=== PATIENT | female | born 1990 | race Caucasian/White ===

== ENCOUNTER → 2017-06-16 | Outpatient (CLI) | payer OTHER ==
[~2017-06-16] MED LIST: AMOX500C2 PO; CEPH500C PO; CODE-54 PO; DCS100C PO; FRS325T PO; IBP600T1 PO; NAPR-243 PO; NITR-65 PO; ONDAN4ODT PO; PENI500T PO; PREN1TAB19 PO; TRM50T PO
--- NOTE | 2017-06-16 09:32 | Diagnostic Imaging Report ---
PROCEDURE: CT head without contrast. TECHNIQUE: Multiple contiguous axial images were obtained through the brain without the use of intravenous contrast. INDICATION: Headache after injury. FINDINGS: There is no intracranial hemorrhage, edema or mass effect. The brain parenchyma and palomino-white matter differentiation is preserved. No hydrocephalus. No extra-axial fluid collection is seen. The calvarium, the paranasal sinuses, and orbits visualized portions appear unremarkable. IMPRESSION: Unremarkable exam. Dictated by: Dictated on workstation # [id number]
== END ==
LOC: RAD 08:35
PROVIDERS: ATTEND Nurse Practitioner
DX: R51 Headache (principal)
CPT/HCPCS: 70450

== ENCOUNTER 2021-05-25 03:54 | Emergency (ER) | payer BC ==
[~2021-05-25] VITALS: Ht 162.5 cm; Wt 55.0 kg
[2021-05-25 04:09] VITALS: BP 123/93
[2021-05-25] MEDS ORDERED: NAPR500T8 PO (04:14)
[2021-05-25] MEDS ORDERED: TRAM-42 PO (04:14)
[2021-05-25] MEDS ORDERED: AMOX-358 PO (04:14)
[2021-05-25] MEDS ORDERED: LIDO20SO23 MM (04:14)
[2021-05-25] MEDS ORDERED: RX-NAPROXEN (NAPROSYN) 250 MG TAB PPK#4 PO STA (04:15)
[2021-05-25] MEDS ORDERED: AUGMENTIN 875 MG TAB (AMOXICILLIN/CLAVULANATE) PO SCH (04:15)
[2021-05-25] MEDS ORDERED: LIDOCAINE 2% VISCOUS 15 ML UDC MM ONE (04:15)
--- NOTE | 2021-05-25 04:15 | ED EENT ---
History of Present Illness General Chief Complaint: Dental Problems/Pain Stated Complaint: DENTAL PAIN Source: patient History of Present Illness Date Seen by Provider: May 25, 2021 Time Seen by Provider: 04:05 Initial Comments PT ARRIVES VIA POV FROM HOME C/O DENTAL PAIN TO LEFT LOWER MOLAR AREA STATES SHE HAS HAD A FILLING IN THAT TOOTH FOR A LONG TIME STATES ON Thursday05/22/21, SHE WAS EATING AN APPLE AND THE TOOTH BROKE OFF, ALONG WITH THE FILLING. HAS HAD INCREASING PAIN SINCE THEN, AND TONIGHT, SHE BEGAN HAVING SWELLING TO HER LEFT JAW AREA NO FEVER AT ANY TIME NO HISTORY OF SIMILAR HAS TAKEN TYLENOL WITHOUT RELIEF HAS NOT ATTEMPTED TO FOLLOW UP WITH A DENTIST FOR THIS PROBLEM PCP: DR. MONTERO DENTIST: [facility] Allergies and Home Medications Allergies Coded Allergies: No Known Drug Allergies (Unverified , 03/20/13) Patient Home Medication List Home Medication List Reviewed: Yes Acetaminophen/Codeine (Tylenol W/Codeine #3 Tablet) 1 Tab Tablet, 1-2 TAB PO Q4H PRN for MODERATE TO SEVERE PAIN Prescribed by: JOSIE TAYLOR on 01/05/14718 Amoxicillin (Amoxicillin) 500 Mg Capsule, 1,000 MG PO BID Prescribed by: JONH NAYLOR on 02/17/16 2230 Amoxicillin/Potassium Clav (Augmentin 875-125 Tablet) 1 Each Tablet, 1 EACH PO BID Prescribed by: YINKA PACHECO on 05/25/21 0414 Cephalexin Monohydrate (Cephalexin) 500 Mg Capsule, 1 EACH PO TID Prescribed by: BOWEN CABA on 01/13/14 1515 Docusate Sodium (Colace) 100 Mg Cap, 100 MG PO BID Prescribed by: JOSIE TAYLOR on 01/05/14718 Ferrous Sulfate (Feosol Tab) 325 Mg Tab, 325 MG PO DAILY@0700 Prescribed by: JOSIE TAYLOR on 01/05/14718 Ibuprofen (Motrin Tablet) 600 Mg Tab, 600 MG PO Q6H Prescribed by: JOSIE TAYLOR on 01/05/14718 Lidocaine HCl (Lidocaine HCl Viscous) 15 Ml Solution, 1-2 ML MM [id number] Prescribed by: YINKA PACHECO on 05/25/21 041 Naproxen (Naproxen) 500 Mg Tablet.dr, 500 MG PO BID Prescribed by: YINKA PACHECO on 05/25/21 0414 Vit/Fe Fumarate/Fa ( Vitamins Tablet) 1 Each Tablet, 1 EACH PO DAILY, (Reported) Entered as Reported by: CARLIE WHITLEY on 11/26/13 0749 Tramadol HCl (Ultram) 50 Mg Tablet, 50 MG PO Q4H Prescribed by: YINKA PACHECO on 05/25/21 0415 Review of Systems Review of Systems Constitutional: no symptoms reported Mouth: see HPI Throat: no symptoms reported Respiratory: no symptoms reported Cardiovascular: no symptoms reported Musculoskeletal: no symptoms reported Skin: no symptoms reported Neurological: No Symptoms Reported Past Zmllhsw-Abuxhl-Eqshsc Hx Immunizations Up To Date Tetanus Booster (TDap): Unknown PED Vaccines UTD: Yes Seasonal Allergies Seasonal Allergies: No Past Medical History Surgeries: No Respiratory: No Cardiac: No Neurological: No Reproductive Disorders: No Female Reproductive Disorders: Denies HIV/AIDS: No Gastrointestinal: No Musculoskeletal: No Endocrine: No HEENT: No Cancer: No Psychosocial: No Integumentary: No Adverse Reaction/Blood Tranf: No Family Medical History Patient reports no known family medical history. No Pertinent Family Hx Physical Exam Vital Signs Vital Signs - First Documented 05/25/21 04:09 Temp 37.2 Pulse 68 Resp 16 B/P (MAP) 123/93 (103) Pulse Ox 100 O2 Delivery Room Air Height, Weight, BMI Height: 5'4.00" Weight: 124lbs. 0.0oz. 56.592631pb; 21.3 BMI Method:Stated General Appearance: WD/WN, no apparent distress, thin, other (PURPLE AND CARBAJAL HAIR) Mouth/Throat: dental tenderness; No excessive drooling; mandibular swelling; No maxillary swelling, No trismus; other (LEFT LOWER FIRST MOLAR BROKEN IN HALF, WITH MODERATE SURROUNDING ERYTHEMA AND SWELLING TO ADJACENT GUM TISSUE. NO FLUCUTANCE. NO DRAINAGE. MILD SWELLING AND MODERATE TENDERNESS TO LEFT MANDIBLE. 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, no motor/sensory deficits, alert, normal mood/affect, oriented x 3 Skin: normal color, warm/dry Progress/Results/Core Measures Results/Orders My Orders Orders - YINKA PACHECO DO Rx-Naproxen (Rx-Naprosyn) (05/25/21 04:15) Rx-Tramadol Hcl (Rx-Ultram) (05/25/21 04:15) Amoxicillin/Clavulanate Tablet (Augmenti (05/25/21 04:15) Lidocaine 2% Viscous 15 Ml (Xylocaine Vi (05/25/21 04:15) Vital Signs/I&O 05/25/21 04:09 Temp 37.2 Pulse 68 Resp 16 B/P (MAP) 123/93 (103) Pulse Ox 100 O2 Delivery Room Air Departure Impression Primary Impression: Dental infection Additional Impression: BROKEN TOOTH WITH INFECTION Disposition: HOME, SELF-CARE Condition: Stable Departure-Patient Inst. Decision time for Depature: 04:10 Referrals: CLARK MONTERO MD (PCP/Family) Primary Care Physician [facility] Patient Instructions: Fractured Tooth (DC), Tooth Abscess (DC) Add. Discharge Instructions: FREQUENT SALT WATER SWISHES SOFT FOODS AND AVOID CHEWING ON LEFT SIDE FOLLOW UP WITH DENTIST SOON POSSIBLE --CALL IN THE MORNING TO SCHEDULE APPOINTMENT All discharge instructions reviewed with patient and/or family. Voiced understanding. Scripts Tramadol HCl (Ultram) 50 Mg Tablet 50 MG PO Q4H for Pain, #10 TAB Prov: YINKA PACHECO DO 05/25/21 Naproxen (Naproxen) 500 Mg Tablet.dr 500 MG PO BID, #20 TAB Prov: SOHAIL PACHECOA K DO 05/25/21 Lidocaine HCl (Lidocaine HCl Viscous) 15 Ml Solution 1-2 ML MM [id number], #120 ML Prov: YINKA PACHECO DO 05/25/21 Amoxicillin/Potassium Clav (Augmentin 875-125 Tablet) 1 Each Tablet 1 EACH PO BID for 10 Days, #20 TAB Prov: YINKA PACHECO DO 05/25/21 YINKA PACHECO DO May 25, 2021 04:15
== END 2021-05-25 04:25 | disposition home or self-care (01) ==
LOC: EDUNIT# 03:54 → ER 04:02
DX: S02.5XXA Fracture of tooth (traumatic), initial encounter for closed fracture (principal); K04.7 Periapical abscess without sinus; X58.XXXA Exposure to other specified factors, initial encounter
CPT/HCPCS: 99283

== ENCOUNTER → 2021-07-10 | Outpatient (CLI) | payer BC ==
[~2021-07-10] MED LIST changes: +AMOX-358 PO; +LIDO20SO23 MM; +NAPR500T8 PO; +TRAM-42 PO
[2021-07-10 14:53] LABS: HEMATOCRIT 40 % (35-52); HEMOGLOBIN 13.3 g/dL (11.5-16.0); MEAN CORPUSCULAR HEMOGLOBIN 30 pg (25-34); MEAN CORPUSCULAR HGB CONC 34 g/dL (32-36); MEAN CORPUSCULAR VOLUME 89 fL (80-99); MEAN PLATELET VOLUME 10.7 fL (9.0-12.2); PLATELET COUNT 266 10^3/uL (130-400); WHITE BLOOD COUNT 5.7 10^3/uL (4.3-11.0)
[2021-07-10 15:33] LABS: ALANINE AMINOTRANSFERASE 16 U/L (0-55); ALBUMIN 4.6 GM/DL (3.2-4.5); ALKALINE PHOSPHATASE 41 U/L (40-136); BILIRUBIN,TOTAL 0.4 MG/DL (0.1-1.0); BUN/CREATININE RATIO 10; CALCIUM 9.4 MG/DL (8.5-10.1); CARBON DIOXIDE 24 MMOL/L (21-32); CHLORIDE 104 MMOL/L (98-107); CREATININE SERUM 0.72 MG/DL (0.60-1.30); GFR ESTIMATED 94; POTASSIUM 3.6 MMOL/L (3.6-5.0); SODIUM 140 MMOL/L (135-145); TOTAL PROTEIN 7.2 GM/DL (6.4-8.2)
[2021-07-10 15:40] LABS: GLUCOSE 49 MG/DL (70-105)
--- NOTE | 2021-07-10 16:03 | Diagnostic Imaging Report ---
PROCEDURE: US PELVIC (NON-OB). TECHNIQUE: Multiple real-time grayscale images were obtained over the pelvis in various projections transabdominally. In addition, limited pelvic Doppler was performed. INDICATION: Positive urine test. FINDINGS: Uterus is anteverted measuring 8.2 x 3.4 x 5.0 cm. Endometrium is 5 mm in thickness. No intrauterine gestational sac is identified. No myometrial mass is identified. Right ovary measures 2.3 x 3.3 x 1.7 cm, and the left ovary measures 3.2 x 2.2 x 2.2 cm. Both ovaries contain small follicles. There is blood flow to both ovaries. No adnexal mass or free fluid is seen. IMPRESSION: No evidence of intrauterine or ectopic . No acute feature is detected. Dictated by: Dictated on workstation # [id number]
== END ==
LOC: RAD 14:33
PROVIDERS: ATTEND Family Medicine
DX: Z32.02 Encounter for pregnancy test, result negative (principal); N93.9 Abnormal uterine and vaginal bleeding, unspecified
CPT/HCPCS: 36415; 76856; 80053; 84443; 84702; 85027

== ENCOUNTER → 2022-10-09 | Outpatient (CLI) | payer BC ==
[2022-10-09 13:46] LABS: HEMATOCRIT 34 % (35-52); HEMOGLOBIN 11.4 g/dL (11.5-16.0); MEAN CORPUSCULAR HEMOGLOBIN 30 pg (25-34); MEAN CORPUSCULAR HGB CONC 33 g/dL (32-36); MEAN CORPUSCULAR VOLUME 88 fL (80-99); PLATELET COUNT 193 10^3/uL (130-400); WHITE BLOOD COUNT 4.7 10^3/uL (4.3-11.0)
[2022-10-09 14:07] LABS: ALBUMIN 4.1 GM/DL (3.2-4.5); BILIRUBIN,TOTAL 0.4 MG/DL (0.1-1.0); CALCIUM 8.9 MG/DL (8.5-10.1); CREATININE SERUM 0.77 MG/DL (0.60-1.30); POTASSIUM 3.2 MMOL/L (3.6-5.0); TOTAL PROTEIN 6.3 GM/DL (6.4-8.2)
--- NOTE | 2022-10-09 15:42 | Diagnostic Imaging Report ---
PROCEDURE: US Thyroid. TECHNIQUE: Multiple real-time grayscale images were obtained of the thyroid in various projections. INDICATION: Thyroid mass. COMPARISON with study date 05/19/2016. Dominant hypoechoic right lobe mass is well-defined, vascularized and solid without calcification. It measures 3.8 x 1.5 x 2.9 cm, previously 1.6 x 1.4 x 1.4 cm. This appears to have been biopsied back in 2016; however, given its significant increase in size, consideration for resampling with fine-needle aspiration is suggested for this TI-RADS 4 lesion. The left thyroid lobe contains some tiny cyst in the lower pole, has benign findings, otherwise normal. IMPRESSION: Large TI-RADS 4 hypoechoic solid vascularized right thyroid lobe masses 3.8 cm today and previously measured 1.6 cm. Fine-needle aspiration biopsy recommended. Dictated by: Dictated on workstation # [id number]
== END ==
LOC: RAD 13:07
PROVIDERS: ATTEND Physician Assistant
DX: E04.2 Nontoxic multinodular goiter (principal)
CPT/HCPCS: 36415; 76536; 80053; 80061; 84443; 85027

== ENCOUNTER → 2022-10-20 | Outpatient (CLI) | payer BC ==
[~2022-10-20] VITALS: Ht 162.6 cm; Wt 59.1 kg
[~2022-10-20] MED LIST changes: +LIDOCAINE 1% INJ 30 ML (XYLOCAINE) VIAL INJ ONE
--- NOTE | 2022-10-20 14:56 | Diagnostic Imaging Report ---
INDICATION: Right thyroid nodule. PROCEDURE: The patient presents for ultrasound-guided fine-needle aspiration and biopsy. The patient was brought to the procedure room, placed on the table in the supine position. Ultrasound imaging of the right neck was performed to evaluate appropriate entry site. The right neck was then prepped and draped in the usual sterile fashion. A small amount of 1% lidocaine was utilized for local anesthesia. Four passes were made into the dominant solid mass right lobe of the thyroid utilizing 25-gauge needles and fine-needle aspiration technique. A single pass was made with a Rotex needle and a Rotex biopsy was performed. Hemostasis was obtained using manual compression. The patient tolerated the procedure well and left the department in stable condition. IMPRESSION: Successful ultrasound-guided fine-needle aspiration and Rotex biopsy, right lobe thyroid nodule. Pathology results are currently pending. Dictated by: Dictated on workstation # [id number]
== END ==
LOC: RAD 14:00
PROVIDERS: ATTEND Physician Assistant
DX: E04.1 Nontoxic single thyroid nodule (principal)
CPT/HCPCS: 10005